=== PATIENT | female | born 1935 | race Caucasian/White ===

== ENCOUNTER 2017-02-20 20:01 | Emergency (ER) | payer MEDICARE, OTHER ==
[~2017-02-20] VITALS: Ht 160 cm; Wt 76.7 kg
[~2017-02-20 20:01] MED LIST: AMLO10 PO; ATOR20TA PO; CALC.25 PO; HYDR-3533 PO; HYDR10TA23 PO; HYDR25TA35 PO; LEVO75TA3 PO; LORA1TAB PO; OMEG100037 PO; VITATAB25 PO
[2017-02-20 20:10] VITALS: BP 144/72; PULSE 75; RESP 20; TEMP 97.8; O2SAT 98
[2017-02-20] MEDS ORDERED: CALC0.25 PO (20:30)
[2017-02-20] MEDS ORDERED: ATOR20TA15 PO (20:30)
[2017-02-20] MEDS ORDERED: FISH1000 (20:30)
[2017-02-20] MEDS ORDERED: ESSE250T (20:30)
[2017-02-20] MEDS ORDERED: LORA1TAB12 PO (20:30)
[2017-02-20] MEDS ORDERED: LEVO75TA3 PO (20:30)
[2017-02-20] MEDS ORDERED: HYDR10TA23 PO (20:30)
[2017-02-20] MEDS ORDERED: VITA100032 (20:30)
[2017-02-20] MEDS ORDERED: HYDR-3533 PO (20:30)
[2017-02-20] MEDS ORDERED: AMLO10 PO (20:30)
--- NOTE | 2017-02-20 20:32 | PD ---
HPI Chief Complaint: Musculoskeletal Complaint Time Seen by Provider: 20:13 Travel History International Travel<30 days: No Contact w/Intl Traveler<30days: No Traveled to known affect area: No History of Present Illness HPI This 81-year-old female is complaining of pain in her right lower leg. She has a had a fracture of the tib-fib about 15 years ago. He was treated nonoperatively that she has had trouble with the leg since. She has had a blood clot in the leg. She has chronic pain but the pain has been worse the last few days. She has increased pain when she bears weight. She has not had any fever or chills. She is not on any blood thinners now. She has noted that her toes seemed to her curl up on the right leg pain. PFSH Past Medical History Arthritis: Yes Asthma: Yes Autoimmune Disease: No Anxiety: No Depression: No Heart Rhythm Problems: No Cancer: Yes (colon) Cardiovascular Problems: Yes High Cholesterol: Yes Chemotherapy: No Chest Pain: No Congestive Heart Failure: No COPD: Yes Cerebrovascular Accident: No Diabetes: No Diminished Hearing: No Deep Vein Thrombosis: Yes Endocrine: Yes Gastrointestinal Disorders: Yes Genitourinary: Yes Hypertension: Yes Immune Disorder: No Implanted Vascular Access Dvce: Yes Musculoskeletal: Yes Neurologic: Yes Psychiatric: No Reproductive: No Respiratory: Yes Radiation Therapy: No Sickle Cell Disease: No Sleep Apnea: No Thyroid Disease: Yes Menopausal: Yes Past Surgical History Abdominal Surgery: Yes AICD: No Appendectomy: Yes Arteriovenous Shunt: No Body Medical Devices: LEFT EYE LENS Cardiac Surgery: No Ear Surgery: No Endocrine Surgery: No Eye Surgery: No Genitourinary Surgery: Yes Gynecologic Surgery: No Hysterectomy: Yes (OOPHRECTOMY BILAT) Insulin Pump: No Joint Replacement: No Oral Surgery: No Pacemaker: No Thoracic Surgery: No Social History Alcohol Use: No Tobacco Use: No (QUIT 1969) Substance Use: No Allergies-Medications (Allergen,Severity, Reaction): Coded Allergies: Aspirin (Verified Allergy, Severe, BLEEDING, 02/20/17) Contrast Media (Verified Allergy, Severe, Thalassemia-blood disorder, 02/20) Codeine (Verified Allergy, Mild, ITCHING, 02/20/17) Reported Meds & Prescriptions Reported Meds & Active Scripts Active Reported Lorazepam 1 Mg Tab 1 Mg PO HS PRN Magnesium 250 Mg Tab Fish Oil ([place]-3 Fatty Acids) 1,000 Mg Cap Levothyroxine (Levothyroxine Sodium) 75 Mcg Tab 75 Mcg PO DAILY Lortab (Hydrocodone-Acetaminophen) 5-325 Mg Tab 1 Tab PO Q4H PRN Hydralazine (Hydralazine HCl) 10 Mg Tab 10 Mg PO QID Take with a meal Vitamin D (Cholecalciferol) 1,000 Unit Cap Calcitriol 0.25 Mcg Cap 0.25 Mcg PO DAILY Atorvastatin (Atorvastatin Calcium) 20 Mg Tab 20 Mg PO HS Norvasc (Amlodipine Besylate) 10 Mg Tab 10 Mg PO DAILY Review of Systems General / Constitutional: No: Fever, Chills Eyes: No: Diploplia, Blurred Vision HENT: No: Headaches, Vertigo Cardiovascular: No: Chest Pain or Discomfort, Diaphoresis Respiratory: No: Cough, Shortness of Breath Gastrointestinal: No: Nausea, Vomiting Genitourinary: No: Urgency, Frequency Musculoskeletal: No: Myalgias Skin: No Rash, No Itching Neurologic: No: Weakness, Dizziness Hematologic/Lymphatic: No: Easy Bruising Physical Exam Narrative GENERAL: Well-developed female SKIN: Focused skin assessment warm/dry. HEAD: Atraumatic. Normocephalic. EYES: Pupils equal and round. No scleral icterus. No injection or drainage. ENT: No nasal bleeding or discharge. Mucous membranes pink and moist. NECK: Trachea midline. No JVD. MUSCULOSKELETAL: No obvious deformities. No clubbing. No cyanosis. No edema. Examination of the right leg which is the affected extremity does not show any warmth or erythema. There is some tenderness in the distal two thirds of the tibia. There is no palpable defect at the site. There is a good dorsalis pedal pulse and perfusion is good. There is some tenderness in the calf without weakness with dorsiflexion and plantar flexion of the foot NEUROLOGICAL: Awake and alert. No obvious cranial nerve deficits. Motor grossly within normal limits. Normal speech. PSYCHIATRIC: Appropriate mood and affect; insight and judgment normal. Data Data Last Documented VS Vital Signs Date Time Temp Pulse Resp B/P Pulse Ox O2 Delivery O2 Flow Rate FiO2 02/20/17 20:10 97.8 75 20 144/72 98 Orders Tibia/Fibula (Ap/Lat) (02/20/17 20:26) Complete Blood Count With Diff (02/20/17 20:26) Basic Metabolic Panel (Bmp) (02/20/17 20:26) Magnesium (Mg) (02/20/17 20:26) Us Leg Venous Doppler (02/20/17 20:26) Labs Laboratory Tests Test 02/20/17 20:55 White Blood Count 5.6 TH/MM3 Red Blood Count 5.57 MIL/MM3 Hemoglobin 10.5 GM/DL Hematocrit 33.8 % Mean Corpuscular Volume 60.6 FL Mean Corpuscular Hemoglobin 18.8 PG Mean Corpuscular Hemoglobin 31.0 % Concent Red Cell Distribution Width 16.2 % Platelet Count 115 TH/MM3 Mean Platelet Volume 8.6 FL Neutrophils (%) (Auto) 59.0 % Lymphocytes (%) (Auto) 30.5 % Monocytes (%) (Auto) 6.0 % Eosinophils (%) (Auto) 2.4 % Basophils (%) (Auto) 2.1 % Neutrophils # (Auto) 3.4 TH/MM3 Lymphocytes # (Auto) 1.7 TH/MM3 Monocytes # (Auto) 0.3 TH/MM3 Eosinophils # (Auto) 0.1 TH/MM3 Basophils # (Auto) 0.1 TH/MM3 CBC Comment AUTO DIFF Sodium Level 141 MEQ/L Potassium Level 4.1 MEQ/L Chloride Level 105 MEQ/L Carbon Dioxide Level 27.5 MEQ/L Anion Gap 9 MEQ/L Blood Urea Nitrogen 23 MG/DL Creatinine 1.30 MG/DL Estimat Glomerular Filtration 40 ML/MIN Rate Random Glucose 100 MG/DL Calcium Level 9.0 MG/DL Magnesium Level 2.4 MG/DL MDM Medical Decision Making Medical Screen Exam Complete: Yes Emergency Medical Condition: Yes Medical Record Reviewed: Yes Differential Diagnosis Differential includes DVT, bony abnormality of the leg, posttraumatic pain or neuropathy Narrative Course X-ray of the right leg shows evidence of the previous fracture which is healed. Ultrasound is negative for DVT. Lab work shows a normal potassium. Etiology for the pain has not been determined. There is no evidence of vascular insufficiency or infection. sHe is stable for discharge Diagnosis Primary Impression: Neuralgia of right lower extremity Disposition: 01 DISCHARGE HOME Condition: Stable Tyrel Knight MD Feb 20, 2017 20:32
--- NOTE | 2017-02-20 21:05 | RADHPO ---
EXAM DATE/TIME: 02/20/2017 20:41 [facility] COMPARISON: No previous studies available for comparison. INDICATIONS : Pain in right tibia posteriorly. MEDICAL HISTORY : None. SURGICAL HISTORY : None. ENCOUNTER: Initial ACUITY: 4 - 6 days PAIN SCORE: 8/10 LOCATION: Right tibia FINDINGS: Old healed fractures of the right tibia and fibula are noted. There is no acute fracture or dislocat ion of the right tibia or fibula. CONCLUSION: 1. No acute fracture or dislocation of the right tibia or fibula. 2. Old healed fractures of the tibia and fibula. Kenneth Johnson MD on February 20, 2017 at 21:03 Board Certified Radiologist. This report was verified electronically.
[2017-02-20 21:06] LABS: AUTOMATED NEUTROPHIL # 3.4 TH/MM3 (1.8-7.7); BASOPHIL # 0.1 TH/MM3 (0-0.2); BASOPHIL % 2.1 % (0.0-2.0); EOSINOPHIL # 0.1 TH/MM3 (0-0.4); EOSINOPHIL % 2.4 % (0.0-4.0); HEMATOCRIT 33.8 % (35.0-46.0); LYMPH % 30.5 % (9.0-44.0); LYMPHOCYTE # 1.7 TH/MM3 (1.0-4.8); MEAN CELL VOLUME 60.6 FL (80.0-100.0); MEAN CORPUSCULAR HEMOGLOBIN 18.8 PG (27.0-34.0); PLATELET COUNT 115 TH/MM3 (150-450); RED BLOOD COUNT 5.57 MIL/MM3 (4.00-5.30); RED CELL DISTRIBUTION WIDTH 16.2 % (11.6-17.2); WHITE BLOOD COUNT 5.6 TH/MM3 (4.0-11.0)
[2017-02-20 21:10] LABS: HEMO FLAGS AUTO DIFF
[2017-02-20 21:20] LABS: POTASSIUM 4.1 MEQ/L (3.5-5.1)
[2017-02-20 21:23] LABS: BICARBONATE 27.5 MEQ/L (21.0-32.0); MAGNESIUM 2.4 MG/DL (1.5-2.5)
--- NOTE | 2017-02-20 21:23 | RADHPO ---
EXAM DATE/TIME: 02/20/2017 20:58 [facility] COMPARISON: US LEG RIGHT VENOUS DOPPLER, May 04, 2015, 13:38. INDICATIONS : Right leg pain. MEDICAL HISTORY : Hypercholesterolemia. Hypothyroidism. Chronic obstructive pulmonary disease. Hypertension. DVT. Ar thritis. Colon cancer. C-diff. SURGICAL HISTORY : Appendectomy. Hysterectomy. Colectomy. ENCOUNTER: Initial ACUITY: 1 week PAIN SCORE: 4/10 LOCATION: Right leg. TECHNIQUE: Venous ultrasound of the leg was performed from the inguinal ligament to the proximal calf. Real-maria esther e, color Doppler and spectral tracing, compression and augmentation techniques were used. FINDINGS: There is normal compressibility of the deep venous system from the inguinal region to the proximal ca lf. No echogenic clot is seen in the lumen of the common femoral, femoral, popliteal, and posterior tibial veins. There is a normal response of the venous system to proximal and distal augmentation an d respiration. CONCLUSION: No evidence of deep venous thrombosis within the right lower extremity. Kenneth Johnson MD on February 20, 2017 at 21:21 Board Certified Radiologist. This report was verified electronically.
[2017-02-20 21:43] LABS: OVALOCYTES 2+ (NORMAL); PLATELET ESTIMATE SMEAR NORMAL (NORMAL); PLATELET MORPHOLOGY NORMAL (NORMAL); SCAN/DIFF AUTO DIFF CONFIRMED
[2017-02-20 22:00] VITALS: BP 137/72
== END 2017-02-20 22:41 | disposition home or self-care (01) ==
LOC: PHED 20:01
DX: M79.2 Neuralgia and neuritis, unspecified (principal); E03.9 Hypothyroidism, unspecified; Z79.899 Other long term (current) drug therapy; M79.604 Pain in right leg
CPT/HCPCS: 73590; 80048; 83735; 85025; 93971

== ENCOUNTER 2017-04-02 12:16 | Emergency (ER) | payer OTHER ==
[~2017-04-02] VITALS: Ht 162.6 cm; Wt 74.0 kg
[~2017-04-02 12:16] MED LIST changes: -ATOR20TA PO; +ATOR20TA15 PO; -CALC.25 PO; +CALC0.25 PO; +ESSE250T; +FISH1000; -HYDR25TA35 PO; -LORA1TAB PO; +LORA1TAB12 PO; -OMEG100037 PO; +VITA100032; -VITATAB25 PO
[2017-04-02 12:20] VITALS: BP 126/63; PULSE 87; RESP 20; TEMP 97.9; O2SAT 94
[2017-04-02] MEDS ORDERED: RESP: ALBUTEROL 2.5 MG/IPRATROPIUM 0.5 MG NEB (SCH) NEB ONE (12:30)
--- NOTE | 2017-04-02 12:32 | PD ---
HPI Chief Complaint: Respiratory Symptoms Time Seen by Provider: 12:19 Travel History International Travel<30 days: No Contact w/Intl Traveler<30days: No Traveled to known affect area: No History of Present Illness HPI This 82-year-old female is complaining of shortness of breath. She says she been short of breath since yesterday. She says she didn't sleep well last night due to his breathing. She thinks she's had fever off and on she's had a congested cough. She is not aware of any history of heart disease. She stopped smoking many years ago. She has a history of clostridium difficile PFS Past Medical History Arthritis: Yes Asthma: Yes Autoimmune Disease: No Anxiety: No Depression: No Heart Rhythm Problems: No Cancer: Yes (colon) Cardiovascular Problems: Yes High Cholesterol: Yes Chemotherapy: No Chest Pain: No Congestive Heart Failure: No COPD: Yes Cerebrovascular Accident: No Diabetes: No Diminished Hearing: No Deep Vein Thrombosis: Yes Endocrine: Yes Gastrointestinal Disorders: Yes Genitourinary: Yes Heparin Induced Thrombocytopen: No Hypertension: Yes Immune Disorder: No Implanted Vascular Access Dvce: No Musculoskeletal: Yes (R TIB/FIB FX) Neurologic: Yes Psychiatric: No Reproductive: No Respiratory: Yes Radiation Therapy: No Sickle Cell Disease: No Sleep Apnea: No Thyroid Disease: Yes Tetanus Vaccination: < 5 Years ?: Not Menopausal: Yes Past Surgical History Abdominal Surgery: Yes AICD: No Appendectomy: Yes Arteriovenous Shunt: No Body Medical Devices: LEFT EYE LENS Cardiac Surgery: No Ear Surgery: No Endocrine Surgery: No Eye Surgery: No Genitourinary Surgery: Yes Gynecologic Surgery: No Hysterectomy: Yes (OOPHRECTOMY BILAT) Insulin Pump: No Joint Replacement: No Oral Surgery: No Pacemaker: No Thoracic Surgery: No Social History Alcohol Use: No Tobacco Use: No (QUIT 1969) Substance Use: No Allergies-Medications (Allergen,Severity, Reaction): Coded Allergies: Aspirin (Verified Allergy, Severe, BLEEDING, 04/02/17) Contrast Media (Verified Allergy, Severe, Thalassemia-blood disorder, ) Codeine (Verified Allergy, Mild, ITCHING, 04/02/17) Reported Meds & Prescriptions Reported Meds & Active Scripts Active Prednisone (48) 10 mg tab Dose Pack (Prednisone) 10 Mg Dspk 10 Mg PO DIRECTED Albuterol Neb (Albuterol Sulfate) 2.5 Mg/3 Ml Neb 2.5 Mg NEB TID NEB PRN Zithromax Z-Trent (Azithromycin) 250 Mg Dspk 250 Mg PO DIRECTED 500 MG (2 tabs) day 1, then 1 tab days 2-5. Reported Lyrica (Pregabalin) 50 Mg Cap 50 Mg PO DAILY Lorazepam 1 Mg Tab 1 Mg PO HS PRN Magnesium 250 Mg Tab Fish Oil ([place]-3 Fatty Acids) 1,000 Mg Cap Levothyroxine (Levothyroxine Sodium) 75 Mcg Tab 75 Mcg PO DAILY Hydralazine (Hydralazine HCl) 10 Mg Tab 10 Mg PO QID Take with a meal Vitamin D (Cholecalciferol) 1,000 Unit Cap Calcitriol 0.25 Mcg Cap 0.25 Mcg PO DAILY Atorvastatin (Atorvastatin Calcium) 20 Mg Tab 20 Mg PO HS Norvasc (Amlodipine Besylate) 10 Mg Tab 10 Mg PO DAILY Review of Systems General / Constitutional: No: Fever, Chills Eyes: No: Diploplia HENT: No: Headaches, Vertigo Cardiovascular: No: Chest Pain or Discomfort, Palpitations Respiratory: Positive: Cough, Shortness of Breath Gastrointestinal: No: Vomiting, Diarrhea Genitourinary: No: Urgency, Frequency Musculoskeletal: No: Myalgias Physical Exam Narrative GENERAL: Well-developed female SKIN: Focused skin assessment warm/dry. HEAD: Atraumatic. Normocephalic. EYES: Pupils equal and round. No scleral icterus. No injection or drainage. ENT: No nasal bleeding or discharge. Mucous membranes pink and moist. NECK: Trachea midline. No JVD. CARDIOVASCULAR: Regular rate and rhythm. No murmur appreciated. RESPIRATORY: No accessory muscle use. There are bilateral expiratory wheezes. Breath sounds equal bilaterally. GASTROINTESTINAL: Abdomen soft, non-tender, nondistended. Hepatic and splenic margins not palpable. MUSCULOSKELETAL: No obvious deformities. No clubbing. No cyanosis. No edema. NEUROLOGICAL: Awake and alert. No obvious cranial nerve deficits. Motor grossly within normal limits. Normal speech. PSYCHIATRIC: Appropriate mood and affect; insight and judgment normal. Data Data Last Documented VS Vital Signs Date Time Temp Pulse Resp B/P Pulse Ox O2 Delivery O2 Flow Rate FiO2 04/02/17 12:27 20 94 Room Air 04/02/17 12:20 97.9 87 126/63 Orders Electrocardiogram (04/02/17 12:26) Complete Blood Count With Diff (04/02/17 12:26) Comprehensive Metabolic Panel (04/02/17 12:26) Troponin I (04/02/17 12:26) B-Type Natriuretic Peptide (04/02/17 12:26) Urinalysis - C+S If Indicated (04/02/17 12:26) Chest, Single Ap (04/02/17 12:26) Albuterol-Ipratropium Neb (Duoneb Neb) (04/02/17 12:30) Methylprednisolone So Succ Inj (Solumedr (04/02/17 13:30) Labs Laboratory Tests Test 04/02/17 12:30 White Blood Count 7.9 TH/MM3 Red Blood Count 5.79 MIL/MM3 Hemoglobin 10.7 GM/DL Hematocrit 34.1 % Mean Corpuscular Volume 59.0 FL Mean Corpuscular Hemoglobin 18.5 PG Mean Corpuscular Hemoglobin 31.3 % Concent Red Cell Distribution Width 14.7 % Platelet Count 123 TH/MM3 Mean Platelet Volume 8.7 FL Neutrophils (%) (Auto) 67.6 % Lymphocytes (%) (Auto) 19.4 % Monocytes (%) (Auto) 9.2 % Eosinophils (%) (Auto) 0.9 % Basophils (%) (Auto) 2.9 % Neutrophils # (Auto) 5.4 TH/MM3 Lymphocytes # (Auto) 1.5 TH/MM3 Monocytes # (Auto) 0.7 TH/MM3 Eosinophils # (Auto) 0.1 TH/MM3 Basophils # (Auto) 0.2 TH/MM3 CBC Comment AUTO DIFF Differential Comment AUTO DIFF CONFIRMED Platelet Estimate LOW Platelet Morphology Comment NORMAL Target Cells 1+ Ovalocytes 1+ Acanthocytes 1+ Sodium Level 139 MEQ/L Potassium Level 3.8 MEQ/L Chloride Level 103 MEQ/L Carbon Dioxide Level 26.5 MEQ/L Anion Gap 10 MEQ/L Blood Urea Nitrogen 16 MG/DL Creatinine 1.50 MG/DL Estimat Glomerular Filtration 33 ML/MIN Rate Random Glucose 109 MG/DL Calcium Level 9.0 MG/DL Total Bilirubin 0.7 MG/DL Aspartate Amino Transf 33 U/L (AST/SGOT) Alanine Aminotransferase 36 U/L (ALT/SGPT) Alkaline Phosphatase 73 U/L Troponin I LESS THAN 0.02 NG/ML Total Protein 7.7 GM/DL Albumin 3.4 GM/DL MDM Medical Decision Making Medical Screen Exam Complete: Yes Emergency Medical Condition: Yes Medical Record Reviewed: Yes Differential Diagnosis Differential includes CHF, pneumonia, COPD Narrative Course X-rays negative for CHF and pneumonia. Patient responded well to albuterol. He is quite insistent on going home. She will be released prescription for prednisone, albuterol and Zithromax Diagnosis Primary Impression: COPD exacerbation Scripts Prednisone (48) 10 mg tab Dose Pack 10 Mg Dspk10 Mg PO DIRECTED #1 DSPK Ref 0 Prov:Tyrel Knight MD 04/02/17 Albuterol Neb 2.5 Mg/3 Ml Neb2.5 Mg NEB TID NEB PRN (SHORTNESS OF BREATH) #60 NEBULE Ref 0 Prov:Tyrel Knight MD 04/02/17 Azithromycin (Zithromax Z-Trent)250 Mg [id number] Mg PO DIRECTED #1 DSPK Ref 0 500 MG (2 tabs) day 1, then 1 tab days 2-5. Prov:Tyrel Knight MD 04/02/17 Disposition: 01 DISCHARGE HOME Condition: Stable Tyrel Knight MD April 02, 2017 12:32
[2017-04-02 12:39] LABS: AUTOMATED NEUTROPHIL # 5.4 TH/MM3 (1.8-7.7); BASOPHIL # 0.2 TH/MM3 (0-0.2); BASOPHIL % 2.9 % (0.0-2.0); EOSINOPHIL # 0.1 TH/MM3 (0-0.4); EOSINOPHIL % 0.9 % (0.0-4.0); HEMATOCRIT 34.1 % (35.0-46.0); LYMPH % 19.4 % (9.0-44.0); LYMPHOCYTE # 1.5 TH/MM3 (1.0-4.8); MEAN CORPUSCULAR HEMOGLOBIN 18.5 PG (27.0-34.0); MEAN CORPUSCULAR HGB CONC 31.3 % (32.0-36.0); MONO % 9.2 % (0.0-8.0); NEUT % 67.6 % (16.0-70.0); PLATELET COUNT 123 TH/MM3 (150-450); RED BLOOD COUNT 5.79 MIL/MM3 (4.00-5.30); RED CELL DISTRIBUTION WIDTH 14.7 % (11.6-17.2); WHITE BLOOD COUNT 7.9 TH/MM3 (4.0-11.0)
[2017-04-02 12:41] LABS: HEMO FLAGS AUTO DIFF
[2017-04-02] MEDS ORDERED: LYRI50CA PO (12:50)
[2017-04-02 12:51] LABS: CHLORIDE 103 MEQ/L (98-107); POTASSIUM 3.8 MEQ/L (3.5-5.1); SODIUM (NA) 139 MEQ/L (136-145)
[2017-04-02 12:55] LABS: ANION GAP 10 MEQ/L (5-15); BICARBONATE 26.5 MEQ/L (21.0-32.0); BLOOD UREA NITROGEN 16 MG/DL (7-18)
[2017-04-02 12:58] LABS: ALT (GPT) 36 U/L (10-53); AST (GOT) 33 U/L (15-37); GLOMERULAR FILTRATION RATE 33 ML/MIN (>89)
[2017-04-02 12:59] LABS: TOTAL BILIRUBIN ADULT 0.7 MG/DL (0.2-1.0)
[2017-04-02 13:01] LABS: ALKALINE PHOSPHATASE 73 U/L (45-117)
--- NOTE | 2017-04-02 13:15 | RADHPO ---
EXAM DATE/TIME: 04/02/2017 12:46 [facility] COMPARISON: CHEST SINGLE AP, May 04, 2015, 9:44. CHEST SINGLE AP, May 09, 2016, 13:17. INDICATIONS : Short of breath MEDICAL HISTORY : None. SURGICAL HISTORY : None. ENCOUNTER: Initial ACUITY: 1 week PAIN SCORE: 0/10 LOCATION: Bilateral chest FINDINGS: A single view of the chest demonstrates the lungs to be symmetrically aerated without evidence of mas s, infiltrate or effusion. There is mild scarring. Mild atherosclerotic calcifications are present in the aorta. The cardiomediastinal contours are unremarkable. Osseous structures are intact. CONCLUSION: No acute disease. Scarring is again noted. Gael Darden MD on April 02, 2017 at 13:12 Board Certified Radiologist. This report was verified electronically.
[2017-04-02 13:20] LABS: ACANTHOCYTES 1+ (NORMAL); OVALOCYTES 1+ (NORMAL); PLATELET ESTIMATE SMEAR LOW (NORMAL); PLATELET MORPHOLOGY NORMAL (NORMAL); SCAN/DIFF AUTO DIFF CONFIRMED; TARGET CELLS 1+ (NORMAL)
[2017-04-02 13:26] VITALS: BP 123/68; PULSE 67; RESP 16; O2SAT 99
[2017-04-02] MEDS ORDERED: ZITHTAB PO (13:29)
[2017-04-02] MEDS ORDERED: PRED10PA PO (13:29)
[2017-04-02] MEDS ORDERED: ALBU0.08 NEB (13:29)
[2017-04-02] MEDS ORDERED: methylPREDNISolone SOD SUCC 125 MG/2 ML VIAL IV PUSH ONE (13:30)
[2017-04-02] MEDS ORDERED: PRED10PA2 PO (13:31)
[2017-04-02 13:36] VITALS: BP 127/68; PULSE 83; RESP 18; O2SAT 95
--- NOTE | 2017-04-03 11:26 | EKG ---
Date Performed: 04/02/2017 Time Performed: 12:24:16 PTAGE: 82 years EKG: Sinus tachycardia with borderline 1st degree A-V block Indeterminate axis Right bundle bran ch block Inferior/lateral T wave changes are nonspecific Low QRS voltages in precordial leads Abnorma l ECG PREVIOUS TRACING : 05/10/2016 06.09 DOCTOR: Tom Avilez Interpretating Date/Time 04/03/2017 11:21:04
== END 2017-04-02 13:52 | disposition home or self-care (01) ==
LOC: PHED 12:16
DX: J44.1 Chronic obstructive pulmonary disease with (acute) exacerbation (principal); R00.0 Tachycardia, unspecified; I45.10 Unspecified right bundle-branch block; I44.0 Atrioventricular block, first degree; J45.909 Unspecified asthma, uncomplicated; E78.00 Pure hypercholesterolemia, unspecified; I10 Essential (primary) hypertension; Z86.718 Personal history of other venous thrombosis and embolism; Z87.891 Personal history of nicotine dependence
CPT/HCPCS: 71010; 80053; 83880; 84484; 85025; 93005; 94664; 96374; 99284; J2930